=== PATIENT | male | born 1960 ===

== ENCOUNTER → 2024-04-05 13:40 | Outpatient (REF) | payer OTHER, SELFPAY ==
[2024-04-05] MEDS: THYROGEN 1 MG IM (07:45)
== END ==
LOC: RAD 13:40
PROVIDERS: ATTENDING PHYSICIAN Internal Medicine Endocrinology, Diabetes & Metabolism
DX: C73 Malignant neoplasm of thyroid gland (principal)
CPT/HCPCS: 96372; J3240

== ENCOUNTER → 2024-04-06 08:00 | Outpatient (REF) | payer OTHER, SELFPAY ==
--- NOTE | 2024-04-06 07:44 | PTCARENOTE ---
0740 Patient identified, NKA confirmed. Thyrogen 1.1mg given right gluteal. Patient denies any problems from injection #1 and wishes to proceed with his day. Left ambulatory
== END ==
LOC: RAD 08:00
PROVIDERS: ATTENDING PHYSICIAN Internal Medicine Endocrinology, Diabetes & Metabolism
DX: C73 Malignant neoplasm of thyroid gland (principal)
CPT/HCPCS: 96372; J3240